=== PATIENT | female | born 1995 | race Caucasian/White ===

== ENCOUNTER 2018-07-06 07:16 | Inpatient (IN) | payer BC ==
[2018-07-06] MEDS ORDERED: Celecoxib 200 MG Cap PO ONE (07:30)
[2018-07-06] MEDS ORDERED: Scopolamine 1.5 MG Transdermal Patch TOP SCH ×2 (07:30→07:45)
[2018-07-06] MEDS ORDERED: Gabapentin 300 MG Cap PO ONE (07:30)
[2018-07-06] MEDS ORDERED: Acetaminophen 500 MG Tab PO ONE (07:30)
[2018-07-06] MEDS ORDERED: Propofol 200 MG/20 ML SDV ONE ×2 (08:09→12:28)
[2018-07-06] MEDS ORDERED: Glycopyrrolate 0.2 MG/ML 5 ML MDV ONE (08:09)
[2018-07-06] MEDS ORDERED: Succinylcholine 200 MG/10 ML MDV ONE ×2 (08:09→12:28)
[2018-07-06] MEDS ORDERED: Rocuronium 50 MG/5 ML Vial ONE ×2 (08:09→13:00)
[2018-07-06] MEDS ORDERED: Ondansetron 4 MG/2 ML SDV ONE (08:09)
[2018-07-06] MEDS ORDERED: Neostigmine Methylsulfate 1 MG/ML 5 ML Syringe ONE (08:09)
[2018-07-06] MEDS ORDERED: Dexamethasone 4 MG/ML SDV ONE (08:09)
[2018-07-06] MEDS ORDERED: fentaNYL 250 MCG/5 ML SDV ONE ×2 (08:09→13:13)
[2018-07-06] MEDS ORDERED: Dextrose 5%-Lactated Ringers 1,000 ML IV SCH (08:15)
[2018-07-06] MEDS ORDERED: Ketamine 50 MG in Sodium Chloride 0.9% 49.5 ML IV SCH (09:00)
[2018-07-06] MEDS ORDERED: Ketamine 500 MG/5 ML MDV IV SCH (09:00)
[2018-07-06] MEDS ORDERED: Lidocaine 2% 100 MG/5 ML Syringe IVPUSH SCH (09:00)
[2018-07-06] MEDS ORDERED: Lidocaine 0.4%/D5W 2 GM/500 ML BAG IV SCH (09:00)
[2018-07-06] MEDS ORDERED: cefOXitin 2 GM Vial ONE (10:31)
[2018-07-06] MEDS: cefOXitin 2 GM in Sodium Chloride 0.9% 50 ML IV ONE ×2 (11:59→15:36)
[2018-07-06] MEDS ORDERED: Lidocaine 1% 2 ML ONE (12:28)
[2018-07-06] MEDS ORDERED: hydrOXYzine HCl 100 MG/2 ML SDV IM ONE (14:06)
[2018-07-06] MEDS ORDERED: fentaNYL 100 MCG/2 ML SDV ONE (14:27)
[2018-07-06] MEDS ORDERED: Sugammadex Sodium 200 MG/2 ML VIAL ONE (14:55)
[2018-07-06] MEDS ORDERED: fentaNYL 100 MCG/2 ML SDV IVPUSH ONE ×2 (15:14→15:26)
[2018-07-06] MEDS ORDERED: Labetalol 20 MG/4 ML Syringe IVPUSH PRN (16:18)
[2018-07-06] MEDS ORDERED: diphenhydrAMINE 50 MG/ML SDV IVPUSH PRN (16:18)
[2018-07-06] MEDS ORDERED: Metoclopramide 10 MG/2 ML SDV IVPUSH PRN (16:18)
[2018-07-06] MEDS ORDERED: Ondansetron 4 MG/2 ML SDV IVPUSH PRN (16:18)
[2018-07-06] MEDS ORDERED: HYDROmorphone 1 MG/ML Syringe IV PRN (16:18)
[2018-07-06] MEDS ORDERED: hydrOXYzine HCl 100 MG/2 ML SDV IM PRN (16:18)
[2018-07-06] MEDS: Dextrose 5%-Lactated Ringers 1,000 ML IV SCH ×2 (16:38→23:42)
[2018-07-06] MEDS: SCOPOLAMINE PATCH CHECK TOP SCH (17:55)
[2018-07-06] MEDS: Heparin Sodium 5,000 Units/ML Vial SUBCUT SCH (17:55)
[2018-07-06] MEDS: cefOXitin 2 GM in Sodium Chloride 0.9% 50 ML IV SCH ×2 (17:55→23:27)
[2018-07-06] MEDS ORDERED: Pantoprazole 40 MG Vial IVPUSH SCH (18:00)
[2018-07-06] MEDS ORDERED: MVI, Adult with Vitamin K 10 ML, Thiamine 200 MG, Chromium/Copper/Mang/Selen/Zn 1 ML in... IV SCH ×4 (18:00)
[2018-07-06] MEDS ORDERED: Benzocaine/Cetylpyridinium/Menthol Lozenge MUCMEM PRN (19:36)
[2018-07-06] MEDS: HYDROmorphone 0.5 MG/0.5 ML Syringe IVPUSH PRN ×2 (19:38→22:36)
[2018-07-06] MEDS: Gabapentin 250 MG/5 ML Solution ML 470 ML Bottle PO SCH (20:44)
[2018-07-06] MEDS ORDERED: Acetaminophen Soln 650 MG/20.3 ML UD Cup PO SCH (22:00)
[2018-07-06] MEDS: Acetaminophen 325 MG Tab PO SCH (22:32)
[2018-07-07] MEDS: Heparin Sodium 5,000 Units/ML Vial SUBCUT SCH ×3 (02:00→18:15)
[2018-07-07] MEDS ORDERED: Iohexol 647 MG/ML 50 ML SDV PO SCH (03:00)
[2018-07-07] MEDS: HYDROmorphone 0.5 MG/0.5 ML Syringe IVPUSH PRN ×4 (03:08→16:42)
[2018-07-07] MEDS: Acetaminophen 325 MG Tab PO SCH ×4 (03:16→21:13)
--- NOTE | 2018-07-07 03:37 | CRLCR ---
INDICATION: Evaluate Niki-en-Y gastric bypass. FINDINGS: Enteric contrast orally. No dilatation of the visualized distal esophagus. Contrast through Niki-en-Y gastric bypass with some filling of the small gastric remnant. Contrast is seen into the mildly dilated jejunal Niki loop extending to the left lower abdomen. No obstruction. No extravasation. Beck-Malhotra surgical drain left lateral to the bypassed noted. Dictated by Patrick Joshua MD @ Jul 09 2018 8:45AM Signed by Dr. Patrick Joshua @ Jul 09 2018 8:45AM
[2018-07-07] MEDS: Dextrose 5%-Lactated Ringers 1,000 ML IV SCH (05:02)
[2018-07-07] MEDS: cefOXitin 2 GM in Sodium Chloride 0.9% 50 ML IV SCH ×3 (05:18→18:18)
[2018-07-07] MEDS: Celecoxib 200 MG Cap PO SCH (07:19)
[2018-07-07] MEDS: Gabapentin 250 MG/5 ML Solution ML 470 ML Bottle PO SCH ×3 (08:08→21:12)
[2018-07-07] MEDS: SCOPOLAMINE PATCH CHECK TOP SCH (08:09)
[2018-07-07] MEDS: acetaZOLAMIDE 250 MG Tab PO PRN (09:07)
[2018-07-07] MEDS: Lisinopril 10 MG Tab PO SCH (09:07)
[2018-07-07] MEDS: Escitalopram 20 MG Tab PO SCH (09:08)
[2018-07-07] MEDS ORDERED: Dextrose 5%-Lactated Ringers 1,000 ML IV SCH (11:30)
[2018-07-07] MEDS ORDERED: MVI, Adult with Vitamin K 10 ML, Thiamine 200 MG, Chromium/Copper/Mang/Selen/Zn 1 ML in... IV SCH ×4 (16:00)
[2018-07-07] MEDS ORDERED: Pantoprazole 40 MG Delayed-Release Granules 1 Packet PO SCH (16:30)
[2018-07-07] MEDS ORDERED: diphenhydrAMINE 25 MG Cap PO PRN (19:39)
[2018-07-07] MEDS ORDERED: Ondansetron 4 MG Tab.DIS PO PRN (19:39)
[2018-07-07] MEDS: HYDROmorphone 2 MG Tab PO PRN (20:01)
[2018-07-08] MEDS: Heparin Sodium 5,000 Units/ML Vial SUBCUT SCH (01:55)
[2018-07-08] MEDS: Acetaminophen 325 MG Tab PO SCH ×2 (03:00→09:34)
[2018-07-08] MEDS: HYDROmorphone 2 MG Tab PO PRN ×2 (04:46→09:58)
[2018-07-08] MEDS: Celecoxib 200 MG Cap PO SCH (08:02)
[2018-07-08] MEDS ORDERED: Magnesium Hydroxide 400 MG/5 ML Susp 30 ML Cup PO PRN (08:41)
[2018-07-08] MEDS ORDERED: Cyanocobalamin (Vitamin B12) 1,000 MCG/ML SDV IM ONE (09:00)
[2018-07-08] MEDS: SCOPOLAMINE PATCH CHECK TOP SCH (09:16)
[2018-07-08] MEDS: Lisinopril 10 MG Tab PO SCH (09:26)
[2018-07-08] MEDS: Escitalopram 20 MG Tab PO SCH (09:26)
[2018-07-08] MEDS: acetaZOLAMIDE 250 MG Tab PO PRN (09:26)
[2018-07-08] MEDS: Gabapentin 250 MG/5 ML Solution ML 470 ML Bottle PO SCH (09:36)
[2018-07-08] MEDS ORDERED: Enoxaparin 120 MG/0.8 ML Syringe SUBCUT ONE (10:15)
--- NOTE | 2018-07-09 09:41 | PN ---
DATE OF SERVICE: 07/07/2018 The patient has been afebrile with stable vital signs. Status post Niki-en-Y gastric bypass and small bowel resection yesterday. Clinically, she is doing well. She has been moving. She did not bring her CPAP but is maintaining O2 sats satisfactorily with sleeping. We will go up to a step 2 diet today and restart her on lisinopril and Lexapro. We will infuse the MVI and trace elements today and then saline lock her IV. Alfonso Snyder MD /[id number]
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
--- NOTE | 2018-07-10 13:21 | OR ---
DATE OF PROCEDURE: 07/06/2018 PREOPERATIVE DIAGNOSIS: Morbid obesity. POSTOPERATIVE DIAGNOSES: 1. Morbid obesity. 2. Marked hepatomegaly. 3. Small bowel immobile secondary to mesentery being severely fat-laden. OPERATIVE PROCEDURES: 1. Laparoscopic Niki-en-Y gastric bypass with long-limb gastroenterostomy (97281). 2. Foreign-Cut needle liver biopsy (00750). 3. Small bowel resection (02322). ANESTHESIA: General. ASSISTANTS: Deb Myers PA-C, and OSWALDO Onofre. INDICATION FOR PROCEDURE: This is a 22-year-old presenting with severe morbid obesity with a BMI of 74 and progressively increasing comorbidities. The plan is to proceed with a laparoscopic Niki-en-Y gastric bypass. Potential risks of the procedure including bleeding, infection, leaks from various GI tract closures, possible bowel obstruction over time as well as possibility of cardiopulmonary, septic, or hemorrhagic complications leading to were all discussed, and the patient wishes to proceed. DETAILS OF PROCEDURE: The patient was taken to the operating room, and after general endotracheal anesthesia was induced, she was converted to a lithotomy position. The abdomen was then prepped and draped. At 15 cm inferior and 5 cm left of the xiphoid process, a transverse incision was made. The peritoneal cavity was entered under direct vision with an Optiview trocar and inflated to 15 mmHg pressure with CO2. Laparoscope was then reinserted, and no underlying trocar insertion site injuries were seen. Following this, bilateral subcostal transversus abdominis plane blocks were placed and the additional 5 trocars then placed. The patient was noted to have marked hepatomegaly with liver being grossly fatty infiltrated and roughly 2 to 3 times normal size. Foreign-Cut needle biopsies were obtained from the left lobe of liver. Minimal bleeding from the biopsy site was controlled with electrocautery. The omentum was then divided in the midline up to the level of the transverse colon. This allowed identification of small bowel to the ligament of Treitz. Small bowel was then traced out 200 cm distal to that point, where it was divided transversely with a MADHU stapler. Small bowel mesentery was noted to be extremely heavily fat-laden, making the small bowel itself quite immobile. To increase the ultimate mobility of the jejunojejunostomy, roughly 10 cm of the biliopancreatic limb was then resected, again, being divided with MADHU stapler and underlying mesentery being divided with Harmonic scalpel. That small bowel specimen was then delivered from the field. The small bowel was then traced out additional 150 cm, where the [id number] enteroenterostomy was accomplished with an internal firing of the Endo-MADHU 60-mm stapler. Common opening was then closed transversely with the same stapler and the angles anastomosed and mesenteric defect approximated with some 0 Ethibond stitch along with 4 mL of fibrin sealant. The divided end of the Niki limb was then from the mesentery for a few centimeters, which allowed an antecolic position of the Niki limb up to the level of the gastroesophageal junction with minimal tension. The liver was then retracted anteriorly. One additional 5 mm trocar was required to retract the liver satisfactorily. At that point, the patient was noted to have no significant diaphragmatic hernia. The gastrointestinal balloon catheter was then inflated to 15 mL and pulled up snuggly against the EG junction. Gastric wall over the apex of balloon was then marked with electrocautery and balloon catheter deflated and pulled up from the esophagus. The lesser omental tissue adjacent to the gastric cardia was then incised, allowing dissection behind the stomach at that level. Pouch formation was initiated with transverse firing of the MADHU stapler at the level of the cauterized elizabeth in the gastric cardia and then completed with additional firings of MADHU litzy up to and through the angle of His. Upon completion of the pouch, both staple lines were noted to be intact. The anvil of a 25-mm EEA stapler was attached to [place]ton sump type tube. The latter was brought down through a small opening in the gastric pouch, allowing the anvil likewise to be pulled down to within the gastric pouch. The divided end of the Niki limb was then opened and main body of the EEA stapler passed several centimeters into the lumen of small bowel, brought up the anvil and united with it, thus creating the gastrojejunostomy. Upon removal of the stapler, double donuts of mucosa were noted within it. Small bowel was closed off with a vascular staple line. Gastrojejunostomy was then reinforced with some 3-0 Vicryl seromuscular stitch, along with fibrin sealant. Leak test was accomplished with injection of 120 mL of air in the gastric pouch while it submerged within a cefoxitin-containing saline solution, and no leaks were identified. A single Beck-Malhotra drain was then placed adjacent to the gastrojejunostomy and taken up into the splenic fossa and brought out through the left lateral trocar site. With no further problems noted, trocars were removed and the peritoneal cavity deflated. Incisions were closed with some 4-0 Vicryl skin stitch along with drain affixed with the same stitch. The patient was taken to the recovery room in a satisfactory condition. Physician educational assistant teacher, Deb Myers, played an essential role in assisting in this case, helping to position the patient, retract structures as needed, as well as suturing and cutting sutures when indicated. Her presence improved patient safety and decreased the operative time. Alfonso Snyder MD /[id number]
== END 2018-07-08 10:05 | disposition home or self-care (01) | DRG 403 ==
LOC: JP.SDS 07:16 → JP.MS 07:16 → EDSTATUS 10:30 → JP.MS 15:00
PROVIDERS: ADMIT Surgery; ATTEND Surgery
PROC: 0D164ZA Bypass Stomach to Jejunum, Percutaneous Endoscopic Approach (ICD-10-PCS; principal; 2018-07-06)
PROC: 0FB24ZX Excision of Left Lobe Liver, Percutaneous Endoscopic Approach, Diagnostic (ICD-10-PCS; 2018-07-06)
PROC: 0DB94ZZ Excision of Duodenum, Percutaneous Endoscopic Approach (ICD-10-PCS; 2018-07-06)
DX: E66.01 Morbid (severe) obesity due to excess calories (principal); Z68.45 Body mass index [BMI] 70 or greater, adult; R16.0 Hepatomegaly, not elsewhere classified; K59.8 Other specified functional intestinal disorders; K76.0 Fatty (change of) liver, not elsewhere classified; K44.9 Diaphragmatic hernia without obstruction or gangrene; I10 Essential (primary) hypertension; E34.51 Complete androgen insensitivity syndrome; Z86.011 Personal history of benign neoplasm of the brain; Z87.898 Personal history of other specified conditions; F43.10 Post-traumatic stress disorder, unspecified; G47.33 Obstructive sleep apnea (adult) (pediatric); Z99.89 Dependence on other enabling machines and devices; Z87.891 Personal history of nicotine dependence
CPT/HCPCS: 36415; 74240; 80053; 81025; 83735; 83880; 84100; 85027; 86850; 86900; 86901; 88307; 88313; A9270-GY; C9113; C9399; J0171; J0330; J0694; J1100; J1170; J1200; J1644; J1650; J2001; J2405; J2704; J2710; J2795; J3010; J3410; J3411; J3420; J3490; J7042; J7050; Q9967

== ENCOUNTER 2018-07-12 11:30 | Inpatient (IN) | payer BC ==
[2018-07-12] MEDS ORDERED: Lactated Ringers 500 ML IV ONE ×2 (12:55→13:30)
[2018-07-12] MEDS ORDERED: Scopolamine 1.5 MG Transdermal Patch TRDERM ONE (13:00)
[2018-07-12] MEDS ORDERED: Meropenem 500 MG SDV ONE (13:03)
[2018-07-12] MEDS ORDERED: Meropenem 500 MG in Sodium Chloride 0.9% 50 ML IV ONE ×2 (13:30→14:00)
[2018-07-12] MEDS ORDERED: Dextrose 5%-Lactated Ringers 1,000 ML IV SCH (13:30)
[2018-07-12] MEDS ORDERED: fentaNYL 250 MCG/5 ML SDV ONE ×2 (13:37→14:06)
[2018-07-12] MEDS ORDERED: Ketamine 500 MG/5 ML MDV IV SCH (14:00)
[2018-07-12] MEDS ORDERED: Lidocaine 0.4%/D5W 2 GM/500 ML BAG IV SCH (14:00)
[2018-07-12] MEDS ORDERED: Ketamine 50 MG in Sodium Chloride 0.9% 49.5 ML IV SCH (14:00)
[2018-07-12] MEDS ORDERED: Lidocaine 2% 100 MG/5 ML Syringe IVPUSH SCH (14:00)
[2018-07-12] MEDS ORDERED: Propofol 200 MG/20 ML SDV ONE (14:06)
[2018-07-12] MEDS ORDERED: Succinylcholine 200 MG/10 ML MDV ONE (14:06)
[2018-07-12] MEDS ORDERED: Neostigmine Methylsulfate 1 MG/ML 5 ML Syringe ONE (14:06)
[2018-07-12] MEDS ORDERED: Dexamethasone 4 MG/ML SDV ONE (14:06)
[2018-07-12] MEDS ORDERED: Rocuronium 50 MG/5 ML Vial ONE ×2 (14:06→14:12)
[2018-07-12] MEDS ORDERED: Ondansetron 4 MG/2 ML SDV ONE (14:06)
[2018-07-12] MEDS ORDERED: Glycopyrrolate 0.2 MG/ML 5 ML MDV ONE (14:06)
[2018-07-12] MEDS ORDERED: Labetalol 20 MG/4 ML Syringe ONE (14:39)
[2018-07-12] MEDS ORDERED: Lactated Ringers 1,000 ML ONE (14:40)
[2018-07-12] MEDS ORDERED: Naloxone 0.4 MG/ML SDV IV PRN (16:40)
[2018-07-12] MEDS ORDERED: HYDROmorphone/Normal Saline 15 MG/30 ML PCA IV PRN (16:40)
[2018-07-12] MEDS ORDERED: SCOPOLAMINE PATCH CHECK TOP SCH (16:54)
[2018-07-12] MEDS ORDERED: Ondansetron 4 MG/2 ML SDV IVPUSH PRN (16:54)
[2018-07-12] MEDS ORDERED: Labetalol 20 MG/4 ML Syringe IVPUSH PRN (16:54)
[2018-07-12] MEDS ORDERED: HYDROmorphone 0.5 MG/0.5 ML Syringe IVPUSH PRN (16:54)
[2018-07-12] MEDS ORDERED: Metoclopramide 10 MG/2 ML SDV IVPUSH PRN (16:54)
[2018-07-12] MEDS ORDERED: MVI, Adult with Vitamin K 10 ML, Thiamine 200 MG, Chromium/Copper/Mang/Selen/Zn 1 ML in... IV SCH ×4 (17:30)
[2018-07-12] MEDS: Heparin Sodium 5,000 Units/ML Vial SUBCUT SCH (17:55)
[2018-07-12] MEDS ORDERED: Pantoprazole 40 MG Vial IVPUSH SCH (18:00)
[2018-07-12] MEDS: Meropenem 500 MG in Sodium Chloride 0.9% 50 ML IV SCH (19:53)
[2018-07-12] MEDS: Acetaminophen Soln 650 MG/20.3 ML UD Cup PO SCH (19:53)
[2018-07-12] MEDS: HYDROmorphone 1 MG/ML Syringe IV PRN (20:29)
[2018-07-12] MEDS: Gabapentin 250 MG/5 ML Solution ML 470 ML Bottle PO SCH (21:07)
[2018-07-12] MEDS: diphenhydrAMINE 50 MG/ML SDV IVPUSH PRN (21:12)
[2018-07-12] MEDS: Dextrose 5%-Lactated Ringers 1,000 ML IV SCH (23:53)
[2018-07-13] MEDS: Meropenem 500 MG in Sodium Chloride 0.9% 50 ML IV SCH ×4 (01:09→20:44)
[2018-07-13] MEDS: Heparin Sodium 5,000 Units/ML Vial SUBCUT SCH ×3 (01:10→17:27)
[2018-07-13] MEDS: Acetaminophen Soln 650 MG/20.3 ML UD Cup PO SCH ×4 (01:10→20:52)
[2018-07-13] MEDS: HYDROmorphone 1 MG/ML Syringe IV PRN (03:55)
--- NOTE | 2018-07-13 05:32 | CRLCR ---
Indication: Status post Niki-en-Y Technique: Abdomen 2 view. Comparison: CT abdomen July 12, 2018 Findings/Impression: : Two views of the abdomen were performed after administration of oral contrast. There is residual oral contrast material within the colon. Oral contrast is seen within the stomach extending into the proximal small bowel. No definite evidence for extravasation of contrast material. Two OMAR drains project in the left upper quadrant. Dictated by Sandra Henao MD @ Jul 13 2018 5:28AM Signed by Dr. Sandra Henao @ Jul 13 2018 5:30AM
[2018-07-13] MEDS: Dextrose 5%-Lactated Ringers 1,000 ML IV SCH (05:53)
[2018-07-13] MEDS ORDERED: acetaZOLAMIDE 250 MG Tab PO PRN (08:00)
[2018-07-13] MEDS: Celecoxib 200 MG Cap PO SCH (08:10)
[2018-07-13] MEDS: Gabapentin 250 MG/5 ML Solution ML 470 ML Bottle PO SCH ×3 (09:20→20:52)
[2018-07-13] MEDS: HYDROmorphone 2 MG Tab PO PRN ×4 (09:21→20:58)
[2018-07-13] MEDS: Escitalopram 20 MG Tab PO SCH (09:23)
[2018-07-13] MEDS: Lisinopril 10 MG Tab PO SCH (09:23)
[2018-07-13] MEDS: hydrOXYzine HCl 100 MG/2 ML SDV IM PRN ×2 (10:57→15:55)
--- NOTE | 2018-07-13 11:59 | PCM.SURGPN ---
- General Info Date of Service: 07/13/18 Date of Surgery/Procedure: 07/12/18 POD#: 1 Functional Status: Reports: Pain Controlled, Ambulating, Urinating, Incentive Spirometry - Review of Systems General: Reports: No Symptoms HEENT: Reports: No Symptoms Pulmonary: Reports: No Symptoms Cardiovascular: Reports: No Symptoms Gastrointestinal: Reports: No Symptoms Genitourinary: Reports: No Symptoms Musculoskeletal: Reports: No Symptoms - Patient Data Vitals - Most Recent: Last Vital Signs Temp 35.1 C L 07/13/18 08:05 Pulse 88 07/13/18 08:05 Resp 20 07/13/18 08:05 BP 139/73 07/13/18 09:23 Pulse Ox 94 L 07/13/18 08:05 Weight - Most Recent: 218.178 kg I&O - Last 24 Hours: Intake & Output 07/12/18 07/13/18 07/13/18 22:59 06:59 14:59 Intake Total 140 2756 50 Output Total 870 965 700 Balance -730 1791 -650 Lab Results Last 24 Hrs: Laboratory Results - last 24 hr 07/12/18 07/12/18 07/13/18 Range/Units 13:15 13:15 04:09 WBC 14.6 H 15.0 H (4.5-11.0) K/uL RBC 4.76 4.64 (3.30-5.50) M/uL Hgb 14.0 13.6 (12.0-15.0) g/dL Hct 42.9 41.7 (36.0-48.0) % MCV 90 90 (80-98) fL MCH 29 29 (27-31) pg MCHC 33 33 (32-36) % Plt Count 307 326 (150-400) K/uL Neut % (Auto) 87 H (36-66) % Lymph % (Auto) 8 L (24-44) % [place] % (Auto) 4 (2-6) % Eos % (Auto) 0 L (2-4) % Baso % (Auto) 0 (0-1) % Sodium 134 L (140-148) mmol/L Potassium 3.7 (3.6-5.2) mmol/L Chloride 99 L (100-108) mmol/L Carbon Dioxide 24 (21-32) mmol/L Anion Gap 14.7 H (5.0-14.0) mmol/L BUN 7 (7-18) mg/dL Creatinine 0.7 (0.6-1.0) mg/dL Est Cr Clr Drug Dosing 126.59 mL/min Estimated GFR (MDRD) > 60 (>60) Glucose 91 (74-106) mg/dL Calcium 9.2 (8.5-10.1) mg/dL Phosphorus 3.6 (2.5-4.9) mg/dL Magnesium 1.9 (1.8-2.4) mg/dL Total Bilirubin 0.8 D (0.2-1.0) mg/dL AST 55 H (15-37) U/L ALT 174 H (12-78) U/L Alkaline Phosphatase 72 (46-116) U/L Total Protein 7.9 (6.4-8.2) g/dL Albumin 3.3 L (3.4-5.0) g/dL Globulin 4.6 H (2.3-3.5) g/dL Albumin/Globulin Ratio 0.7 L (1.2-2.2) 07/13/18 Range/Units 04:09 WBC (4.5-11.0) K/uL RBC (3.30-5.50) M/uL Hgb (12.0-15.0) g/dL Hct (36.0-48.0) % MCV (80-98) fL MCH (27-31) pg MCHC (32-36) % Plt Count (150-400) K/uL Neut % (Auto) (36-66) % Lymph % (Auto) (24-44) % [place] % (Auto) (2-6) % Eos % (Auto) (2-4) % Baso % (Auto) (0-1) % Sodium 135 L (140-148) mmol/L Potassium 4.0 (3.6-5.2) mmol/L Chloride 101 (100-108) mmol/L Carbon Dioxide 23 (21-32) mmol/L Anion Gap 15.0 H (5.0-14.0) mmol/L BUN 7 (7-18) mg/dL Creatinine 0.5 L (0.6-1.0) mg/dL Est Cr Clr Drug Dosing 177.22 mL/min Estimated GFR (MDRD) > 60 (>60) Glucose 167 H (74-106) mg/dL Calcium 9.2 (8.5-10.1) mg/dL Phosphorus 3.3 (2.5-4.9) mg/dL Magnesium 1.8 (1.8-2.4) mg/dL Total Bilirubin 0.5 (0.2-1.0) mg/dL AST 47 H (15-37) U/L ALT 154 H (12-78) U/L Alkaline Phosphatase 70 (46-116) U/L Total Protein 7.9 (6.4-8.2) g/dL Albumin 3.1 L (3.4-5.0) g/dL Globulin 4.8 H (2.3-3.5) g/dL Albumin/Globulin Ratio 0.7 L (1.2-2.2) Erik Results Last 24 Hrs: Microbiology 07/12/18 14:55 Gram Stain - Final Abdomen - Omentum 07/12/18 14:55 Gram Stain - Final Abdomen - Omentum Med Orders - Current: Current Medications Acetaminophen (Tylenol) 650 mg PO Q6H [facility] Last Admin: 07/13/18 08:10 Dose: 650 mg Acetazolamide (Diamox) 500 mg PO DAILY PRN PRN Reason: * Celecoxib (Celebrex) 200 mg PO DAILY@0800 [facility] Last Admin: 07/13/18 08:10 Dose: 200 mg Cyanocobalamin (Vitamin B12) 1,000 mcg IM ONETIME ONE Stop: 07/14/18 09:01 Diphenhydramine HCl (Benadryl) 50 mg IVPUSH Q4H PRN PRN Reason: ITCHING Last Admin: 07/12/18 21:12 Dose: 50 mg Escitalopram Oxalate (Lexapro) 20 mg PO DAILY [facility] Last Admin: 07/13/18 09:23 Dose: 20 mg Gabapentin (Neurontin) 300 mg PO TID [facility] Last Admin: 07/13/18 09:20 Dose: 300 mg Heparin Sodium (Porcine) (Heparin Sodium) 5,000 units SUBCUT Q8H [facility] Last Admin: 07/13/18 09:24 Dose: 5,000 units Hydromorphone HCl (Dilaudid) 0.5 mg IVPUSH Q2H PRN PRN Reason: MODERATE PAIN Hydromorphone HCl (Dilaudid) 1 mg IV Q2H PRN PRN Reason: SEVERE PAIN Last Admin: 07/13/18 03:55 Dose: 1 mg Hydromorphone HCl (Dilaudid) 2 - 4 mg PO Q4H PRN PRN Reason: Pain Last Admin: 07/13/18 09:21 Dose: 4 mg Hydroxyzine HCl (Vistaril) 100 mg IM Q4H PRN PRN Reason: pain Last Admin: 07/13/18 10:57 Dose: 100 mg Lidocaine HCl/Dextrose (Lidocaine 2 Gm/D5w 500 Ml) 2 gm in 500 mls @ 22.5 mls/ hr IV .[id number] [facility] Stop: 07/13/18 12:13 Last Admin: 07/12/18 17:53 Dose: 1.5 mg/min, 22.5 mls/hr Meropenem 500 mg/ Sodium (Chloride) 50 mls @ 100 mls/hr IV Q6H [facility] Last Admin: 07/13/18 08:10 Dose: 100 mls/hr Dextrose/Lactated Ringer's (Dextrose 5%-Lactated Ringers) 1,000 mls @ 100 mls/ hr IV ASDIRECTED [facility] Multivitamins/Minerals 10 ml/Thiamine HCl 200 mg/ Chromium/Copper/Manganese/ Seleni/Zn 1 ml/ Dextrose/Lactated Ringer's 1,013 mls @ 100 mls/hr IV DAILY@ 1600 [facility] Iohexol (Omnipaque-300) 50 ml PO .ASDIRECTED [facility] Stop: 07/14/18 10:00 Labetalol HCl (Normodyne) 5 mg IVPUSH Q5M PRN PRN Reason: SBP over 160 OR DBP over 95 Lisinopril (Prinivil) 10 mg PO DAILY [facility] Last Admin: 07/13/18 09:23 Dose: 10 mg Metoclopramide HCl (Reglan) 10 mg IVPUSH Q6H PRN PRN Reason: NAUSEA NOT CONTROL BY ZOFRAN Miscellaneous Information (Remove Patch) 1 ea TRDERM ONETIME ONE Stop: 07/14/18 10:01 Scopolamine Patch (Check) 1 each TOP DAILY [facility] Stop: 07/14/18 16:55 Last Admin: 07/13/18 09:25 Dose: Not Given Ondansetron HCl (Zofran) 4 mg IVPUSH Q4H PRN PRN Reason: Nausea/Vomiting Pantoprazole Sodium (Protonix Granules) 40 mg PO Q24H [facility] Discontinued Medications Ropivacaine 60 ml/Dexamethasone 8 mg/Epinephrine HCl 0.4 mg/ Sodium Chloride 17.6 ml 0 ml NERVRT ASDIRECTED [facility] Last Admin: 07/12/18 14:05 Dose: 80 syringe Dexamethasone (Dexamethasone) Confirm Administered Dose 4 mg .ROUTE .STK-MED ONE Stop: 07/12/18 14:07 Fentanyl (Sublimaze) Confirm Administered Dose 250 mcg .ROUTE .STK-MED ONE Stop: 07/12/18 13:38 Fentanyl (Sublimaze) Confirm Administered Dose 250 mcg .ROUTE .STK-MED ONE Stop: 07/12/18 14:07 Glycopyrrolate (Robinul) Confirm Administered Dose 1 mg .ROUTE .STK-MED ONE Stop: 07/12/18 14:07 Hydromorphone HCl (Dilaudid Hr Business Partner Consultant 15 Mg In Ns 30 Ml) 0 mg IV ASDIRECTED PRN; Protocol PRN Reason: [employer]T CONVE[employer]OR DRIER PAIN CONTROL Ketamine HCl 50 mg/ Sodium (Chloride) 50 mls @ 18.9 mls/hr IV ASDIRECTED [facility] Meropenem 500 mg/ Sodium (Chloride) 50 mls @ 100 mls/hr IV ONETIME ONE Stop: 07/12/18 14:29 Last Admin: 07/12/18 13:30 Dose: 100 mls/hr Dextrose/Lactated Ringer's (Dextrose 5%-Lactated Ringers) 1,000 mls @ 200 mls/ hr IV ASDIRECTED [facility] Lactated Ringer's (Ringers, Lactated) 500 mls @ 499.445 mls/hr IV BOLUS ONE Stop: 07/12/18 14:30 Last Admin: 07/12/18 13:34 Dose: 499.445 mls/hr Lactated Ringer's (Ringers, Lactated) Confirm Administered Dose 1,000 mls @ as directed .ROUTE .STK-MED ONE Stop: 07/12/18 14:41 Dextrose/Lactated Ringer's (Dextrose 5%-Lactated Ringers) 1,000 mls @ 175 mls/ hr IV ASDIRECTED [facility] Last Admin: 07/13/18 05:53 Dose: 175 mls/hr Multivitamins/Minerals 10 ml/Thiamine HCl 200 mg/ Chromium/Copper/Manganese/ Seleni/Zn 1 ml/ Dextrose/Lactated Ringer's 1,013 mls @ 174.999 mls/hr IV DAILY@ 1600 [facility] Last Admin: 07/12/18 17:53 Dose: 174.999 mls/hr Ketamine HCl (Ketalar) 31 mg IV ASDIRECTED [facility] Labetalol HCl (Normodyne) Confirm Administered Dose 20 mg .ROUTE .STK-MED ONE Stop: 07/12/18 14:40 Lidocaine HCl (Xylocaine 2%) 150 mg IVPUSH ASDIRECTED [facility] Meropenem (Merrem) Confirm Administered Dose 500 mg .ROUTE .STK-MED ONE Stop: 07/12/18 13:04 Last Admin: 07/12/18 14:19 Dose: 500 mg Naloxone HCl (Narcan) 0.1 mg IV ASDIRECTED PRN PRN Reason: decreased respiratory rate Neostigmine Methylsulfate (Neostigmine) Confirm Administered Dose 5 mg .ROUTE .STK-MED ONE Stop: 07/12/18 14:07 Ondansetron HCl (Zofran) Confirm Administered Dose 4 mg .ROUTE .STK-MED ONE Stop: 07/12/18 14:07 Pantoprazole Sodium (Protonix Iv) 40 mg IVPUSH Q24H [facility] Last Admin: 07/12/18 17:56 Dose: 40 mg Pharmacy Consult (Consult To Pharmacy) 1 each .XX ASDIRECTED [facility] Stop: 07/12/18 16:31 Propofol (Diprivan 20 Ml) Confirm Administered Dose 200 mg .ROUTE .STK-MED ONE Stop: 07/12/18 14:07 Rocuronium [place] (Zemuron) Confirm Administered Dose 50 mg .ROUTE .STK-MED ONE Stop: 07/12/18 14:07 Rocuronium [place] (Zemuron) Confirm Administered Dose 50 mg .ROUTE .STK-MED ONE Stop: 07/12/18 14:13 Scopolamine (Transderm-Scop) 1.5 mg TRDERM ONETIME ONE Stop: 07/12/18 13:01 Last Admin: 07/12/18 13:22 Dose: 1.5 mg Succinylcholine Chloride (Quelicin) Confirm Administered Dose 200 mg .ROUTE .STK -MED ONE Stop: 07/12/18 14:07 - Exam Wound/Incisions: Healing Well General: Alert, Oriented Lungs: Clear to Auscultation, Normal Respiratory Effort Cardiovascular: Regular Rate, Regular Rhythm. No: Murmurs, Gallops, Rubs GI/Abdominal Exam: Soft, Non-Tender - Problem List Review Problem List Initiated/Reviewed/Updated: Yes - My Orders Last 24 Hours: Active Orders 24 hr Category Date Time Status Patient Status [ADT] Routine ADT 07/12/18 15:30 Active Ambulate [RC] ASDIRECTED Care 07/12/18 16:20 Active Cardiac Monitoring Discontinue [RC] Click to Edit Care 07/13/18 09:00 Active Cardiac Monitoring [RC] .As Directed Care 07/12/18 16:20 Active Dorsiflex/Plantar flex x 10 [RC] QSHIFT Care 07/12/18 16:20 Active Drain Management [RC] Q12H Care 07/12/18 16:20 Active Head of Bed Elevation [RC] CONTINUOUS Care 07/12/18 16:20 Active Incentive Spirometry [RT Incentive Spirometry] [RC] Care 07/12/18 12:59 Active ASDIRECTED Insert Urinary Catheter [OM.PC] Per Unit Routine Care 07/12/18 16:20 Ordered Intake and Output [RC] ASDIRECTED Care 07/12/18 16:20 Active Notify Provider Intake and Out [RC] ASDIRECTED Care 07/12/18 16:20 Active Notify Provider [RC] PRN Care 07/12/18 16:20 Active Oxygen Therapy [RC] ASDIRECTED Care 07/12/18 16:20 Active Pulse Oximetry [RC] ASDIRECTED Care 07/12/18 16:20 Active Turn, Cough, Deep Breathe [RC] Q1HWA Care 07/12/18 16:20 Active Up to Chair [RC] TIDMEALS Care 07/12/18 16:20 Active Vital Signs [RC] PER UNIT ROUTINE Care 07/12/18 16:20 Active Consult to Bariatric Services [CONS] Routine Cons 07/12/18 16:20 Active Consult to Sourcing Intern [CONS] Routine Cons 07/12/18 16:20 Active Respiratory Care Assess and Treatment [CONS] Routine Cons 07/12/18 16:20 Active Bariatric Diet [DIET] Diet 07/13/18 Breakfast Active CULTURE ANAEROBIC [RM] Routine Lab 07/12/18 14:55 Received CULTURE ANAEROBIC [RM] Routine Lab 07/12/18 14:55 Results CULTURE WOUND + SMEAR [RM] Routine Lab 07/12/18 14:55 Results CULTURE WOUND + SMEAR [RM] Routine Lab 07/12/18 14:55 Results Acetaminophen [Tylenol] Med 07/12/18 20:00 Active 650 mg PO Q6H Celecoxib [CeleBREX] Med 07/13/18 08:00 Active 200 mg PO DAILY@0800 Cyanocobalamin (Vitamin B12) [Vitamin B12] Med 07/14/18 09:00 Once 1,000 mcg IM ONETIME ONE Dextrose 5%-Lactated Ringers 1,000 ml Med 07/13/18 08:00 Active IV ASDIRECTED Escitalopram [Lexapro] Med 07/13/18 09:00 Active 20 mg PO DAILY Gabapentin [Neurontin] Med 07/12/18 21:00 Active 300 mg PO TID HYDROmorphone [Dilaudid] Med 07/12/18 16:54 Active 0.5 mg IVPUSH Q2H PRN HYDROmorphone [Dilaudid] Med 07/12/18 16:54 Active 1 mg IV Q2H PRN HYDROmorphone [Dilaudid] Med 07/13/18 08:00 Active 2 - 4 mg PO Q4H PRN Heparin Sodium Med 07/12/18 18:00 Active 5,000 units SUBCUT Q8H Iohexol [Omnipaque-300] Med 07/14/18 04:00 Active 50 ml PO .ASDIRECTED Labetalol [Normodyne] Med 07/12/18 16:54 Active 5 mg IVPUSH Q5M PRN Lidocaine 0.4%/D5W [Lidocaine 2 GM/D5W 500 ML] Med 07/12/18 14:00 Active 2 gm in 500 ml IV 1.5 mg/min Lisinopril [Prinivil] Med 07/13/18 09:00 Active 10 mg PO DAILY MVI, Adult with Vitamin K [Infuvite Adult] 10 ml Med 07/13/18 16:00 Active Thiamine [Vitamin B-1] 200 mg Chromium/Copper/Cuco/Selen/Zn [Multitrace-5 Concentrate ] 1 ml Dextrose 5%-Lactated Ringers 1,000 ml IV DAILY@1600 Meropenem [Merrem] 500 mg Med 07/12/18 20:00 Active Sodium Chloride 0.9% [Normal Saline] 50 ml IV Q6H Metoclopramide [Reglan] Med 07/12/18 16:54 Active 10 mg IVPUSH Q6H PRN Non-Formulary Medication [NF Drug] Med 07/12/18 16:54 Active 1 each TOP DAILY Ondansetron [Zofran] Med 07/12/18 16:54 Active 4 mg IVPUSH Q4H PRN Pantoprazole [ProTONIX Granules] Med 07/13/18 16:00 Active 40 mg PO Q24H Remove Patch Med 07/14/18 10:00 Once 1 ea TRDERM ONETIME ONE acetaZOLAMIDE [Diamox] Med 07/13/18 08:00 Active 500 mg PO DAILY PRN diphenhydrAMINE [Benadryl] Med 07/12/18 16:54 Active 50 mg IVPUSH Q4H PRN hydrOXYzine HCl [Vistaril] Med 07/12/18 16:54 Active 100 mg IM Q4H PRN Abdominal Binder [OM.PC] Routine Oth 07/12/18 16:20 Ordered Oral Care [OM.PC] BID Oth 07/12/18 16:30 Ordered Oral Care [OM.PC] BID Oth 07/13/18 16:30 Ordered PT Screening [OM.PC] Routine Oth 07/12/18 16:20 Active Sequential Compression Device [OM.PC] Routine Oth 07/12/18 12:59 Ordered Sequential Compression Device [OM.PC] Routine Oth 07/12/18 16:20 Ordered Specialty Bed [OM.PC] Routine Oth 07/12/18 16:20 Ordered Resuscitation Status Routine Resus Stat 07/12/18 16:20 Ordered Medication Orders Acetaminophen (Tylenol) 650 mg PO Q6H [facility] Last Admin: 07/13/18 08:10 Dose: 650 mg Admin: 07/13/18 01:10 Dose: 650 mg Admin: 07/12/18 19:53 Dose: 650 mg Acetazolamide (Diamox) 500 mg PO DAILY PRN PRN Reason: * Celecoxib (Celebrex) 200 mg PO DAILY@0800 [facility] Last Admin: 07/13/18 08:10 Dose: 200 mg Cyanocobalamin (Vitamin B12) 1,000 mcg IM ONETIME ONE Stop: 07/14/18 09:01 Diphenhydramine HCl (Benadryl) 50 mg IVPUSH Q4H PRN PRN Reason: ITCHING Last Admin: 07/12/18 21:12 Dose: 50 mg Escitalopram Oxalate (Lexapro) 20 mg PO DAILY [facility] Last Admin: 07/13/18 09:23 Dose: 20 mg Gabapentin (Neurontin) 300 mg PO TID [facility] Last Admin: 07/13/18 09:20 Dose: 300 mg Admin: 07/12/18 21:07 Dose: 300 mg Heparin Sodium (Porcine) (Heparin Sodium) 5,000 units SUBCUT Q8H [facility] Last Admin: 07/13/18 09:24 Dose: 5,000 units Admin: 07/13/18 01:10 Dose: 5,000 units Admin: 07/12/18 17:55 Dose: 5,000 units Hydromorphone HCl (Dilaudid) 0.5 mg IVPUSH Q2H PRN PRN Reason: MODERATE PAIN Hydromorphone HCl (Dilaudid) 1 mg IV Q2H PRN PRN Reason: SEVERE PAIN Last Admin: 07/13/18 03:55 Dose: 1 mg Admin: 07/12/18 20:29 Dose: 1 mg Hydromorphone HCl (Dilaudid) 2 - 4 mg PO Q4H PRN PRN Reason: Pain Last Admin: 07/13/18 09:21 Dose: 4 mg Hydroxyzine HCl (Vistaril) 100 mg IM Q4H PRN PRN Reason: pain Last Admin: 07/13/18 10:57 Dose: 100 mg Lidocaine HCl/Dextrose (Lidocaine 2 Gm/D5w 500 Ml) 2 gm in 500 mls @ 22.5 mls/ hr IV .[id number] [facility] Stop: 07/13/18 12:13 Last Admin: 07/12/18 17:53 Dose: 1.5 mg/min, 22.5 mls/hr Meropenem 500 mg/ Sodium (Chloride) 50 mls @ 100 mls/hr IV Q6H [facility] Last Admin: 07/13/18 08:10 Dose: 100 mls/hr Admin: 07/13/18 01:09 Dose: 100 mls/hr Admin: 07/12/18 19:53 Dose: 100 mls/hr Dextrose/Lactated Ringer's (Dextrose 5%-Lactated Ringers) 1,000 mls @ 100 mls/ hr IV ASDIRECTED [facility] Multivitamins/Minerals 10 ml/Thiamine HCl 200 mg/ Chromium/Copper/Manganese/ Seleni/Zn 1 ml/ Dextrose/Lactated Ringer's 1,013 mls @ 100 mls/hr IV DAILY@ 1600 [facility] Iohexol (Omnipaque-300) 50 ml PO .ASDIRECTED [facility] Stop: 07/14/18 10:00 Labetalol HCl (Normodyne) 5 mg IVPUSH Q5M PRN PRN Reason: SBP over 160 OR DBP over 95 Lisinopril (Prinivil) 10 mg PO DAILY [facility] Last Admin: 07/13/18 09:23 Dose: 10 mg Metoclopramide HCl (Reglan) 10 mg IVPUSH Q6H PRN PRN Reason: NAUSEA NOT CONTROL BY ZOFRAN Miscellaneous Information (Remove Patch) 1 ea TRDERM ONETIME ONE Stop: 07/14/18 10:01 Scopolamine Patch (Check) 1 each TOP DAILY [facility] Stop: 07/14/18 16:55 Last Admin: 07/13/18 09:25 Dose: Ondansetron HCl (Zofran) 4 mg IVPUSH Q4H PRN PRN Reason: Nausea/Vomiting Pantoprazole Sodium (Protonix Granules) 40 mg PO Q24H [facility] - Assessment Assessment (Free Text/Narrative):: Cydney Riley is a 22 yo female who presented with abdominal pain on post op day 6 for abdominal pain. There was some abdominal air on CT. She is now s/p 1 day following exploratory laparotomy with omentum removal. She reports feel much better today than she did yesterday stating that she she feels post op recovery pain vs the pain she felt prior to surgery. There were no signs of leak on abdominal x-ray. Negative gram staining and cultures are still pending on the omentum sample. She is maintains an elevated WBC which may be due to general inflammation from the omentum pathology. It appears that the omentum may have been the cause of her abdominal pain given the relief she felt today after its removal. - Plan Plan (Free Text/Narrative):: 1. Exploratory laparotomy for abdominal pain post gastric bypass -Decrease IV fluid rate -PO Dilaudid -STEP 2 diet
[2018-07-13] MEDS: Pantoprazole 40 MG Delayed-Release Granules 1 Packet PO SCH (15:58)
[2018-07-13] MEDS: MVI, Adult with Vitamin K 10 ML, Thiamine 200 MG, Chromium/Copper/Mang/Selen/Zn 1 ML in... IV SCH ×4 (17:29)
[2018-07-14] MEDS: Meropenem 500 MG in Sodium Chloride 0.9% 50 ML IV SCH ×4 (02:35→19:53)
[2018-07-14] MEDS: Heparin Sodium 5,000 Units/ML Vial SUBCUT SCH ×3 (02:35→17:14)
[2018-07-14] MEDS: Acetaminophen Soln 650 MG/20.3 ML UD Cup PO SCH ×4 (02:35→20:29)
[2018-07-14] MEDS ORDERED: Iohexol 647 MG/ML 50 ML SDV PO SCH (04:00)
[2018-07-14] MEDS: Dextrose 5%-Lactated Ringers 1,000 ML IV SCH (07:07)
[2018-07-14] MEDS: Celecoxib 200 MG Cap PO SCH (07:09)
[2018-07-14] MEDS ORDERED: Cyanocobalamin (Vitamin B12) 1,000 MCG/ML SDV IM ONE (09:00)
[2018-07-14] MEDS: Lisinopril 10 MG Tab PO SCH (10:14)
[2018-07-14] MEDS: Escitalopram 20 MG Tab PO SCH (10:14)
[2018-07-14] MEDS: Gabapentin 250 MG/5 ML Solution ML 470 ML Bottle PO SCH ×3 (10:14→20:29)
[2018-07-14] MEDS: HYDROmorphone 2 MG Tab PO PRN ×3 (10:19→22:54)
[2018-07-14] MEDS: hydrOXYzine HCl 100 MG/2 ML SDV IM PRN ×2 (11:54→19:52)
[2018-07-14] MEDS: MVI, Adult with Vitamin K 10 ML, Thiamine 200 MG, Chromium/Copper/Mang/Selen/Zn 1 ML in... IV SCH ×4 (16:12)
[2018-07-14] MEDS: Pantoprazole 40 MG Delayed-Release Granules 1 Packet PO SCH (16:14)
[2018-07-14] MEDS: diphenhydrAMINE 50 MG/ML SDV IVPUSH PRN (21:01)
[2018-07-15] MEDS: Meropenem 500 MG in Sodium Chloride 0.9% 50 ML IV SCH ×2 (02:05→07:25)
[2018-07-15] MEDS: Heparin Sodium 5,000 Units/ML Vial SUBCUT SCH (02:06)
[2018-07-15] MEDS: Acetaminophen Soln 650 MG/20.3 ML UD Cup PO SCH ×2 (02:06→07:21)
[2018-07-15] MEDS: Dextrose 5%-Lactated Ringers 1,000 ML IV SCH (02:34)
[2018-07-15] MEDS: Celecoxib 200 MG Cap PO SCH (07:21)
[2018-07-15] MEDS: HYDROmorphone 2 MG Tab PO PRN (08:04)
[2018-07-15] MEDS: Gabapentin 250 MG/5 ML Solution ML 470 ML Bottle PO SCH (08:05)
[2018-07-15] MEDS: Escitalopram 20 MG Tab PO SCH (08:05)
[2018-07-15] MEDS: Lisinopril 10 MG Tab PO SCH (08:05)
[2018-07-15] MEDS ORDERED: Enoxaparin 100 MG/1 ML Syringe SUBCUT ONE (09:00)
[2018-07-15] MEDS ORDERED: Doxycycline 100 MG Cap PO SCH (09:00)
--- NOTE | 2018-07-17 08:22 | PN ---
DATE OF SERVICE: 07/14/2018 The patient has been afebrile with stable vital signs. Oral intake is fairly good, and we will continue with the step 2, no solids diet today. Otherwise, pain control appears to be adequate, and nothing is going on with . We will keep her one more day on the IV antibiotics, and she may be ready to go home tomorrow. We will probably leave the drains in, with her to follow up with me then on Monday. Alfonso Snyder MD /[id number]
--- NOTE | 2018-07-18 07:43 | DISCH ---
FINAL DIAGNOSES: 1. Acute abdominal pain associated with possibly infected partially necrotic omentum adherent to left and mid abdominal wall. 2. Possibly infected inflammatory fluid collection adjacent to omentum. 3. Status post recent laparoscopic Niki-en-Y gastric bypass with no evidence of leak at gastrojejunostomy or jejunojejunostomy. 4. History of anxiety. 5. Posttraumatic stress disorder. 6. History of pseudotumor cerebri. 7. History of hypertension. 8. History of complete testicular feminization syndrome. OPERATIVE PROCEDURES: Done on 07/12/18, diagnostic laparoscopy with: 1. Partial omentectomy. 2. Drainage of intraabdominal inflammatory fluid collection. SUMMARY: This is a 22-year-old, presenting 6 days status post Niki-en-Y gastric bypass with onset of abdominal pain. The pain began the previous evening, and CT scan showed some tiny air bubbles around the gastrojejunostomy, which would be consistent with a small leak versus some retained CO2 from the time of surgery, given her recent postoperative status. The patient looked fairly ill, but otherwise was hemodynamically stable and afebrile. We decided to proceed with a diagnostic laparoscopy to rule out a leak. No leaks were identified either at the gastrojejunostomy or jejunojejunostomy. The patient did have a fairly striking finding of reddened partially necrotic omentum with some inflammatory fluid around it causing a localized peritonitis in the left mid abdomen. This portion of the omentum was removed and fluid collection drained. Nothing has grown on the cultures, although it is possible that antibiotics were given preoperatively. Postoperatively, the patient has done well. She does have two drains adjacent to gastrojejunostomy and there has been no signs of any leak postoperatively. She will be discharged home to continue on her usual medications and additional Dilaudid 2 mg q.4 hours p.r.n. pain #30 will be written and will, as a precaution, send her home on a course of doxycycline 100 mg p.o. b.i.d. x5 days. She is also felt to benefit from a cane per Physical Therapy, and prescription for a cane will be given and will leave the drains in place for now and we will see the patient back on scheduled time next Monday. Otherwise she will continue her usual medications, and for the ride back to [place], she will be given a dose of Lovenox prior to that transfer.
--- NOTE | 2018-07-18 13:05 | OR ---
DATE OF PROCEDURE: 07/12/2018 PREOPERATIVE DIAGNOSIS: Acute abdominal pain. POSTOPERATIVE DIAGNOSIS: Acute abdominal pain with: 1. Partially necrotic and possibly infected omentum adherent to the left mid abdominal wall. 2. Possibly infected inflammatory fluid collection adjacent to omentum associated with focal peritonitis. PROCEDURES: Diagnostic laparoscopy with: 1. Partial omentectomy (82990). 2. Drainage of intraabdominal inflammatory fluid collection adjacent to omentum (45905). ANESTHESIA: General. SALVAGE MECHANIC: JACOB Thomas3. INDICATIONS FOR PROCEDURE: The patient is now postop day 6 from a laparoscopic Niki-en-Y gastric bypass. Please see H and P for details. Potential risks of procedure including bleeding, infection, injury to underlying viscera, possible persistent leaks from GI tract anastomosis, as well as possibility of cardiopulmonary, septic, or hemorrhagic complications leading to were all discussed, and the patient wishes to proceed. DETAILS OF PROCEDURE: The patient was taken to the operating room. After general endotracheal anesthesia was induced, was converted to a lithotomy position. Babin catheter was inserted, and the abdomen prepped and draped. The previous trocar sites were used with the camera port being 10 cm inferior and 5 cm left of xiphoid process. As one entered the peritoneal cavity, balloon was inflated to 15 mmHg pressure with CO2. Laparoscope was then reinserted. No underlying trocar insertion site injuries were seen. Five additional trocars were placed across the upper and mid abdomen, and general exploration was undertaken. Initial fairly striking finding was that of a deeply reddened and evidently partially necrotic area of omentum, which was adherent to the left mid abdominal wall. This more or less was at the point of her maximal discomfort on preoperative examination. Adjacent to this was fluid collection which had been associated with focal peritonitis. This fluid collection was evacuated and cultures obtained. The portion of the omentum which appeared to be necrotic and highly inflamed was then excised by means of MADHU litzy and in a piecemeal manner delivered from the field. Portion of this was also sent for cultures. The area around the gastrojejunostomy was then carefully inspected. We could not see any signs of bleeding or perianastomotic abscess or fluid collections. Once these areas were well defined, it was then reinforced with some fibrin sealant. Once again, two Beck- Malhotra drains were placed adjacent to the anastomosis in the event that we are missing a leak that might become evident in the postoperative period. The jejunojejunostomy was also then inspected and found to be completely unremarkable. At this point, after placement of drains, no further problems were noted. The abdomen was irrigated with meropenem-containing saline solution. Trocars were removed and peritoneal cavity deflated, and the fascia at 12 mm sites were closed with 0 Vicryl stitch and skin surrounding the drains fixed with some 4-0 Vicryl stitch as well. The patient was taken to the recovery room in satisfactory condition. There were no evident complications. Alfonso Snyder MD /[id number]
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
== END 2018-07-15 10:40 | disposition home or self-care (01) | DRG 229 ==
LOC: EDSTATUS 11:30 → JP.SDS 12:50 → JP.SDSSCHI 12:50 → JP.MS 15:30
PROVIDERS: ADMIT Surgery; ATTEND Surgery
PROC: 0DBU4ZZ Excision of Omentum, Percutaneous Endoscopic Approach (ICD-10-PCS; principal; 2018-07-12)
PROC: 0W9G40Z Drainage of Peritoneal Cavity with Drainage Device, Percutaneous Endoscopic Approach (ICD-10-PCS; 2018-07-12)
DX: K55.069 Acute infarction of intestine, part and extent unspecified (principal); K65.9 Peritonitis, unspecified; R10.9 Unspecified abdominal pain; E55.9 Vitamin D deficiency, unspecified; E66.01 Morbid (severe) obesity due to excess calories; G47.33 Obstructive sleep apnea (adult) (pediatric); G47.00 Insomnia, unspecified; F33.41 Major depressive disorder, recurrent, in partial remission; F41.9 Anxiety disorder, unspecified; F43.10 Post-traumatic stress disorder, unspecified; K21.9 Gastro-esophageal reflux disease without esophagitis; I10 Essential (primary) hypertension; Z87.891 Personal history of nicotine dependence; Z79.899 Other long term (current) drug therapy; Z98.84 Bariatric surgery status; Z88.8 Allergy status to other drugs, medicaments and biological substances; Z91.048 Other nonmedicinal substance allergy status; Z98.890 Other specified postprocedural states; Z98.0 Intestinal bypass and anastomosis status
CPT/HCPCS: 36415; 74240; 80053; 83735; 84100; 85025; 85027; 87070; 87075; 87205; 88305; 94762; A9270-GY; C9113; J0171; J0330; J1100; J1170; J1200; J1644; J1650; J2001; J2185; J2405; J2704; J2710; J2795; J3010; J3410; J3411; J3420; J3490; J7042; J7050; J7120